=== PATIENT | female | born 1975 | race Asian ===

== ENCOUNTER 2018-05-05 09:53 | Outpatient (CLI) | payer BC ==
--- NOTE | 2018-05-17 11:22 | MMO ---
BILATERAL SCREENING MAMMOGRAM: Date: 05/05/18 COMPARISON: 12/17/12. HISTORY: Screening mammography. FINDINGS: This patient's mammogram was interpreted with the assistance of computer-aided detection. The breast parenchyma is heterogeneously dense, limiting mammographic sensitivity. There is no dominant mass or architectural distortion. Benign-appearing calcification noted on the le ft. No worrisome calcifications are noted. IMPRESSION: BIRADS 2: Benign Finding(s) Annual screening mammography recommended. POS: [id number]
== END 2018-05-05 09:54 | disposition home or self-care (01) ==
LOC: SCSMAMMO 09:53
PROVIDERS: ATTEND Family Medicine
DX: Z12.31 Encounter for screening mammogram for malignant neoplasm of breast (principal)
CPT/HCPCS: 77067

== ENCOUNTER 2018-10-07 07:05 | Outpatient (CLI) | payer BC ==
--- NOTE | 2018-10-07 08:31 | ULT ---
PELVIC SONOGRAM TRANSABDOMINAL AND TRANSVAGINAL IMAGING WITH DUPLEX EVALUATION: HISTORY: Pelvic pain. FINDINGS: The urinary bladder is incompletely distended. Uterus has a heterogeneous echotexture and measures u p to 9.9 cm. Multiple heterogeneous hypoechoic lesions of the uterus involve the myometrium and harvey ure up to 2.7 cm. Endometrium is 0.9 cm. No free fluid. The right ovary is 3.2 cm and left is 3.9 cm. Each contains follicles and demonstrates good color an d spectral Doppler flow. IMPRESSION: Moderate fibroid involvement of the uterus. POS: [facility]
== END 2018-10-07 07:06 | disposition home or self-care (01) ==
LOC: SCSULT 07:05
PROVIDERS: ATTEND Family Medicine
DX: R10.2 Pelvic and perineal pain (principal); D25.9 Leiomyoma of uterus, unspecified
CPT/HCPCS: 76856

== ENCOUNTER 2019-06-01 14:22 | Outpatient (CLI) | payer BC ==
--- NOTE | 2019-06-01 15:29 | MMO ---
Bilateral MAMMO Bilat Screen [facility]. CLINICAL HISTORY: Patient is 43 years old and is seen for screening. The patient has no family history of breast cancer. The patient has no personal history of cancer. VIEWS: The views performed were: bilateral craniocaudal and bilateral mediolateral oblique. FILMS COMPARED: The present examination has been compared to prior imaging studies performed at [facility] on 05/05/2018, and at [facility] on 12/17/2012. This study has been interpreted with the assistance of computer-aided detection. MAMMOGRAM FINDINGS: The breasts are heterogeneously dense, which could obscure a lesion on mammography. There are no suspicious masses, suspicious calcifications, or new areas of architectural distortion. IMPRESSION: THERE IS NO MAMMOGRAPHIC EVIDENCE OF MALIGNANCY. A ROUTINE FOLLOW-UP MAMMOGRAM IN 1 YEAR IS RECOMMENDED. ACR BI-RADS Category 1 - Negative MAMMOGRAPHY NOTE: 1. A negative mammogram report should not delay a biopsy if a dominant of clinically suspicious mass is present. 2. Approximately 10% to 15% of breast cancers are not detected by mammography. 3. Adenosis and dense breasts may obscure an underlying neoplasm. Reported by: PRASAD LAM MD Electonically Signed: [id number]
== END 2019-06-01 14:23 | disposition home or self-care (01) ==
LOC: SCSMAMMO 14:22
PROVIDERS: ATTEND Family Medicine
DX: Z12.31 Encounter for screening mammogram for malignant neoplasm of breast (principal)
CPT/HCPCS: 77067

== ENCOUNTER 2025-08-03 13:54 | Outpatient (CLI) | payer BC | END 2025-08-03 13:55 | disposition home or self-care (01) | LOC: SCSRAD 13:54 | PROVIDERS: ATTEND Nurse Practitioner Family | DX: R06.02 Shortness of breath (principal) | CPT/HCPCS: 71046 ==